=== PATIENT | male | born 1990 | race Caucasian/White ===

== ENCOUNTER → 2018-10-12 | Outpatient (CLI) | payer OTHER | END | disposition home or self-care (01) | LOC: CFH 09:41 | PROVIDERS: ATTEND Family Medicine | DX: R10.9 Unspecified abdominal pain (principal) | CPT/HCPCS: 76700 ==

== ENCOUNTER 2020-05-06 13:47 | Emergency (ER) | payer OTHER ==
[~2020-05-06] VITALS: Ht 177.8 cm; Wt 68.0 kg
[2020-05-06 13:54] VITALS: BP 110/76
[2020-05-06] MEDS ORDERED: LIDOCAINE-MPF 1%, 5ML ONE (14:11)
[2020-05-06] MEDS ORDERED: LIDOCAINE 1%, 10ML INFIL ONE (14:30)
[2020-05-06] MEDS ORDERED: DIPH,PERTUSS(ACELL),TET VAC/PF 0.5 ML IM-VACC ONE ×2 (15:12→15:30)
[2020-05-06] MEDS ORDERED: DIPHTHERIA-TETANUS ADULT 0.5ML IM-VACC ONE (15:30)
== END 2020-05-06 15:28 | disposition home or self-care (01) ==
LOC: ED 15:05
DX: S51.012A Laceration without foreign body of left elbow, initial encounter (principal); K21.9 Gastro-esophageal reflux disease without esophagitis; W27.0XXA Contact with workbench tool, initial encounter; Y93.89 Activity, other specified; Y92.89 Other specified places as the place of occurrence of the external cause; Y99.0 Civilian activity done for income or pay
CPT/HCPCS: 12001; 90471; 90715; 99283